=== PATIENT | female | born 1975 | race Caucasian/White ===

== ENCOUNTER → 2025-07-15 | Outpatient (CLI) | payer OTHER | END | disposition home or self-care (01) | LOC: MRI 00:12 | PROVIDERS: ATTEND Orthopaedic Surgery | DX: S83.241A Other tear of medial meniscus, current injury, right knee, initial encounter (principal); M71.21 Synovial cyst of popliteal space [Baker], right knee; M25.561 Pain in right knee; M25.461 Effusion, right knee; M25.861 Other specified joint disorders, right knee; X58.XXXA Exposure to other specified factors, initial encounter; Y93.89 Activity, other specified; Y92.89 Other specified places as the place of occurrence of the external cause; Y99.8 Other external cause status ==